=== PATIENT | female | born 1950 | race Two or more races ===

== ENCOUNTER 2020-04-15 06:50 | Day surgery (SDC) | payer OTHER ==
[~2020-04-15 06:50] MED LIST: ATORVASTATIN CA20 MG PO; CIPRO500 MG PO; DIOVAN HCT 320/1 TA1 PO; SYNTHROID100 MCG PO; SYNTHROID88 MCG PO; TYLENOL325 MG PO; VERAPAMIL ER240 MG PO
== END 2020-04-15 14:00 | disposition home or self-care (01) ==
LOC: CIR.AMB 06:50
PROVIDERS: ATTEND Obstetrics & Gynecology
DX: N84.0 Polyp of corpus uteri (principal); Z20.828 Contact with and (suspected) exposure to other viral communicable diseases